=== PATIENT | female | born 1950 | race Caucasian/White ===

== ENCOUNTER → 2018-03-19 | Outpatient (CLI) | payer BC ==
--- NOTE | 2018-03-19 11:12 | RAD ---
Examination: Ultrasound renal duplex HISTORY: History of hypertension COMPARISON: None available FINDINGS: The right kidney measures 11.2 cm in length. Left kidney 11 cm in length. The velocity in the proximal right renal artery is 115 cm/s, mid right renal artery 118 cm/s, distal right renal artery 100 cm/s The velocity in the proximal left renal artery is 240 cm/s, mid left renal artery 95 cm/s , distal left renal artery 110 cm/s. Velocity in the aorta is 84 cm/s. The right renal artery to aorta velocity ratio is 1.4 and the left renal artery to aorta velocity ratio is 2.4. There is incidental hyperechoic masslike echogenicity identified in the right lobe of the liver probably a hemangioma. IMPRESSION: 1. Elevated velocity identified in the proximal left renal artery probably mild stenosis. 2. Incidental note of 2.7 cm hyperechogenicity identified in the right lobe of the liver possibly a hemangioma. Follow-up nonemergent liver CT protocol or MRI is recommended. Electronically signed by: Rashid Salas MD (03/19/2018 11:07 AM) [place] [id number]
== END | disposition home or self-care (01) ==
LOC: US 07:39
PROVIDERS: ATTEND Family Medicine
DX: I10 Essential (primary) hypertension (principal)
CPT/HCPCS: 76770